=== PATIENT | male | born 1975 | race Caucasian/White ===

== ENCOUNTER 2018-04-14 02:38 | Emergency (ER) | payer OTHER ==
[2018-04-14] MEDS ORDERED: SODIUM CHLORIDE 0.9% 500 ML INFUS.BAG IV ONE (02:44)
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
[2018-04-14 05:53] VITALS: BMI 26.2
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
[2018-04-14 08:53] VITALS: BP 108/60; PULSE 95; TEMP 98
== END 2018-04-14 08:54 | disposition home or self-care (01) ==
LOC: JER 02:38
PROC: 0HQ1XZZ Repair Face Skin, External Approach (ICD-10-PCS; principal; 2018-04-14)
DX: S01.91XA Laceration without foreign body of unspecified part of head, initial encounter (principal); F10.120 Alcohol abuse with intoxication, uncomplicated
CPT/HCPCS: 70450-TC; 99283-25